=== PATIENT | male | born 1960 | race Caucasian/White ===

== ENCOUNTER → 2020-01-31 | Outpatient (CLI) | payer OTHER ==
--- NOTE | 2020-01-31 13:26 | KCIC ---
CHEST PA LATERAL History: Reason: CHRONIC SMOKER / Spl. Instructions: / History: Comparison: None. Findings: The cardiomediastinal silhouette is normal. Pulmonary vasculature is normal. The lungs are hyperexpanded. The lungs are clear. No pleural effusion or pneumothorax is seen. There is no acute bone abnormality. IMPRESSION: 1. No acute cardiopulmonary process. 2. COPD. Electronically signed by: Joseph Solomon MD (01/31/2020 1:24 PM) [facility]
== END | disposition home or self-care (01) ==
LOC: KCIC 10:47
PROVIDERS: ATTEND Clinical Nurse Specialist Family Health
DX: J44.9 Chronic obstructive pulmonary disease, unspecified (principal); F17.200 Nicotine dependence, unspecified, uncomplicated
CPT/HCPCS: 71046